=== PATIENT | male | born 1970 | race Caucasian/White ===

== ENCOUNTER 2025-05-27 13:53 | Outpatient (CLI) | payer SELFPAY ==
[2025-05-27 14:53] LABS: Hematocrit 31.8 % (40-54); Hemoglobin 10.2 g/dL (13.0-16.5); Immature Granulocytes Count 0.060 X10^3/uL (0.0-0.0); Mean Corp Hgb Conc 32.1 g/dL (32-36); Mean Corpuscular Volume 91.6 fL (80-94); Mean Platelet Vol. 9.0 fl (6.2-12.0); NRBC Flagged by Analyzer 0 % (0-5); Platelet Count 546 K/mm3 (150-450); RBC Distribution Width CV 14.0 % (11.6-14.6); RBC Distribution Width SD 47.1 fl (35.1-43.9); Red Blood Count 3.47 M/mm3 (4.6-6.2); White Blood Count 13.2 K/mm3 (4.4-11.0)
[2025-05-27 15:27] LABS: Vancomycin, Trough Level < 4.0 ug/mL (5.0-15.0)
[2025-05-27 15:28] LABS: AST(SGOT) 125 U/L (<=37); Alanine Aminotransfer ALT/SGPT 91 U/L (<=46); Albumin, Serum 3.6 g/dL (3.5-5.0); Alkaline Phosphatase 216 U/L (40-129); Bilirubin, Direct 0.19 mg/dL (0.00-0.30); Globulin 3.7 g/dL (2.2-4.2)
[2025-05-27 16:29] LABS: CRP 44.70 mg/L (0.0-3.0)
== END 2025-05-27 23:59 | disposition home or self-care (01) ==
PROVIDERS: Referring Provider Internal Medicine Infectious Disease; Visit Provider Internal Medicine Infectious Disease
DX: I38 Endocarditis, valve unspecified (principal)
CPT/HCPCS: 36592; 80076; 80202; 82565; 85025; 85652; 86140; A4216

== ENCOUNTER 2025-06-03 13:52 | Outpatient (CLI) | payer SELFPAY ==
[2025-06-03 14:37] LABS: Hematocrit 30.1 % (40-54); Hemoglobin 9.6 g/dL (13.0-16.5); Immature Granulocytes Count 0.030 X10^3/uL (0.0-0.0); Mean Corp Hgb Conc 31.9 g/dL (32-36); Mean Corpuscular Volume 91.5 fL (80-94); Mean Platelet Vol. 9.0 fl (6.2-12.0); NRBC Flagged by Analyzer 0 % (0-5); Platelet Count 454 K/mm3 (150-450); RBC Distribution Width CV 13.6 % (11.6-14.6); RBC Distribution Width SD 46.1 fl (35.1-43.9); Red Blood Count 3.29 M/mm3 (4.6-6.2); White Blood Count 11.1 K/mm3 (4.4-11.0)
[2025-06-03 15:04] LABS: AST(SGOT) 36 U/L (<=37); Alanine Aminotransfer ALT/SGPT 44 U/L (<=46); Albumin, Serum 3.5 g/dL (3.5-5.0); Alkaline Phosphatase 189 U/L (40-129); Bilirubin, Direct 0.13 mg/dL (0.00-0.30); CRP 46.70 mg/L (0.0-3.0); Globulin 3.8 g/dL (2.2-4.2)
[2025-06-03 15:05] LABS: Vancomycin, Trough Level < 4.0 ug/mL (5.0-15.0)
== END 2025-06-03 23:59 | disposition home or self-care (01) ==
LOC: MEDOUTP 13:52
PROVIDERS: Referring Provider Internal Medicine Infectious Disease; Visit Provider Internal Medicine Infectious Disease
DX: I38 Endocarditis, valve unspecified (principal)
CPT/HCPCS: 36592; 80076; 80202; 82565; 85025; 85652; 86140; A4216

== ENCOUNTER 2025-06-10 13:46 | Outpatient (CLI) | payer SELFPAY ==
[2025-06-10 14:35] LABS: Hematocrit 31.5 % (40-54); Hemoglobin 10.2 g/dL (13.0-16.5); Immature Granulocytes Count 0.030 X10^3/uL (0.0-0.0); Mean Corp Hgb Conc 32.4 g/dL (32-36); Mean Corpuscular Volume 90.3 fL (80-94); Mean Platelet Vol. 9.3 fl (6.2-12.0); NRBC Flagged by Analyzer 0 % (0-5); POSITIVE DIFFERENTIAL YES; Platelet Count 410 K/mm3 (150-450); RBC Distribution Width CV 14.0 % (11.6-14.6); RBC Distribution Width SD 46.6 fl (35.1-43.9); Red Blood Count 3.49 M/mm3 (4.6-6.2); White Blood Count 12.6 K/mm3 (4.4-11.0)
[2025-06-10 14:36] LABS: Differential Indicated SCAN CRITERIA MET
[2025-06-10 14:39] LABS: AST(SGOT) 23 U/L (<=37); Alanine Aminotransfer ALT/SGPT 17 U/L (<=46); Albumin, Serum 3.6 g/dL (3.5-5.0); Alkaline Phosphatase 162 U/L (40-129); Bilirubin, Direct 0.14 mg/dL (0.00-0.30); CRP 24.10 mg/L (0.0-3.0); Globulin 3.8 g/dL (2.2-4.2)
[2025-06-10 15:32] LABS: Vancomycin, Trough Level < 4.0 ug/mL (5.0-15.0)
== END 2025-06-10 23:59 | disposition home or self-care (01) ==
PROVIDERS: Referring Provider Internal Medicine Infectious Disease; Visit Provider Internal Medicine Infectious Disease
DX: I38 Endocarditis, valve unspecified (principal)
CPT/HCPCS: 36592; 80076; 80202; 82565; 85025; 85652; 86140; A4216

== ENCOUNTER 2025-06-19 13:49 | Outpatient (CLI) | payer SELFPAY ==
[2025-06-19 14:57] LABS: AST(SGOT) 24 U/L (<=37); Alanine Aminotransfer ALT/SGPT 9 U/L (<=46); Albumin, Serum 3.8 g/dL (3.5-5.0); Alkaline Phosphatase 141 U/L (40-129); Bilirubin, Direct 0.15 mg/dL (0.00-0.30); CRP 16.00 mg/L (0.0-3.0); Globulin 3.8 g/dL (2.2-4.2); Vancomycin, Trough Level < 4.0 ug/mL (5.0-15.0)
[2025-06-19 15:32] LABS: Hematocrit 33.4 % (40-54); Hemoglobin 10.8 g/dL (13.0-16.5); Immature Granulocytes Count 0.040 X10^3/uL (0.0-0.0); Mean Corp Hgb Conc 32.3 g/dL (32-36); Mean Corpuscular Volume 88.6 fL (80-94); Mean Platelet Vol. 9.7 fl (6.2-12.0); NRBC Flagged by Analyzer 0 % (0-5); Platelet Count 392 K/mm3 (150-450); RBC Distribution Width CV 13.9 % (11.6-14.6); RBC Distribution Width SD 45.0 fl (35.1-43.9); Red Blood Count 3.77 M/mm3 (4.6-6.2); White Blood Count 9.7 K/mm3 (4.4-11.0)
== END 2025-06-19 23:59 | disposition home or self-care (01) ==
LOC: MEDOUTP 13:49
PROVIDERS: Referring Provider Internal Medicine Infectious Disease; Visit Provider Internal Medicine Infectious Disease
DX: I34.0 Nonrheumatic mitral (valve) insufficiency (principal)
CPT/HCPCS: 36592; 80076; 80202; 82565; 85025; 85652; 86140; A4216

== ENCOUNTER 2025-06-25 14:51 | Outpatient (CLI) | payer SELFPAY ==
[2025-06-25 15:19] LABS: Hematocrit 32.9 % (40-54); Hemoglobin 10.7 g/dL (13.0-16.5); Immature Granulocytes Count 0.030 X10^3/uL (0.0-0.0); Mean Corp Hgb Conc 32.5 g/dL (32-36); Mean Corpuscular Volume 88.0 fL (80-94); Mean Platelet Vol. 9.0 fl (6.2-12.0); NRBC Flagged by Analyzer 0 % (0-5); Platelet Count 357 K/mm3 (150-450); RBC Distribution Width CV 14.0 % (11.6-14.6); RBC Distribution Width SD 44.9 fl (35.1-43.9); Red Blood Count 3.74 M/mm3 (4.6-6.2); White Blood Count 9.5 K/mm3 (4.4-11.0)
[2025-06-25 15:52] LABS: AST(SGOT) 37 U/L (<=37); Alanine Aminotransfer ALT/SGPT 16 U/L (<=46); Albumin, Serum 3.8 g/dL (3.5-5.0); Alkaline Phosphatase 139 U/L (40-129); Bilirubin, Direct 0.15 mg/dL (0.00-0.30); CRP 24.60 mg/L (0.0-3.0); Globulin 3.7 g/dL (2.2-4.2)
[2025-06-25 16:01] LABS: Vancomycin, Trough Level < 4.0 ug/mL (5.0-15.0)
== END 2025-06-25 23:59 | disposition home or self-care (01) ==
LOC: MEDOUTP 14:51
PROVIDERS: Referring Provider Internal Medicine Infectious Disease; Visit Provider Internal Medicine Infectious Disease
DX: R78.81 Bacteremia (principal); I38 Endocarditis, valve unspecified
CPT/HCPCS: 36592; 80076; 80202; 82565; 85025; 85652; 86140; A4216